=== PATIENT | female | born 1990 | race African-American/Black ===

== ENCOUNTER 2017-03-09 13:05 | Emergency (ER) | payer SELFPAY ==
[~2017-03-09] VITALS: Ht 167.6 cm; Wt 81.6 kg
[2017-03-09 13:15] VITALS: BP 138/61
[2017-03-09] MEDS ORDERED: GABA-586 PO (13:37)
--- NOTE | 2017-03-09 13:38 | PHYS DOC ---
Past Medical History Past Medical History: No Pertinent History Past Surgical History: Alcohol Use: None Drug Use: None Adult General Chief Complaint Chief Complaint: TOE PROBLEM HPI HPI Patient is a 27 year old female with no significant medical history who presents with sensation of numbness to the left great toe and second toe that began 3 weeks ago. Patient denies any injury. Denies any previous history of neuropathy. She is not on any medications. Review of Systems Review of Systems Constitutional: Denies fever or chills [] Eyes: Denies change in visual acuity, redness, or eye pain [] HENT: Denies nasal congestion or sore throat [] Respiratory: Denies cough or shortness of breath [] Cardiovascular: No additional information not addressed in HPI [] GI: Denies abdominal pain, nausea, vomiting, bloody stools or diarrhea [] : Denies dysuria or hematuria [] Musculoskeletal: Numbness sensation to the left great toe and left second toe Integument: Denies rash or skin lesions [] Neurologic: Denies headache, focal weakness or sensory changes [] Endocrine: Denies polyuria or polydipsia [] Allergies Allergies Allergies Coded Allergies Type Severity Reaction Last Updated Verified No Known Drug Allergies 10/17/15 No Physical Exam Physical Exam Constitutional: Well developed, well nourished, no acute distress, non-toxic appearance. [] HENT: Normocephalic, atraumatic, bilateral external ears normal, oropharynx moist, no oral exudates, nose normal. [] Eyes: PERRLA, EOMI, conjunctiva normal, no discharge. [] Neck: Normal range of motion, no tenderness, supple, no stridor. [] Cardiovascular:Heart rate regular rhythm, no murmur [] Lungs & Thorax: Bilateral breath sounds clear to auscultation [] Abdomen: Bowel sounds normal, soft, no tenderness, no masses, no pulsatile masses. [] Skin: Warm, dry, no erythema, no rash. [] Back: No tenderness, no CVA tenderness. [] Extremities: No tenderness, no cyanosis, no clubbing, ROM intact, no edema. [] Neurologic: Alert and oriented X 3, normal motor function, normal sensory function, no focal deficits noted. [] Psychologic: Affect normal, judgement normal, mood normal. [] Current Patient Data Vital Signs Vital Signs Date Time Temp Pulse Resp B/P (MAP) Pulse Ox O2 Delivery O2 Flow Rate FiO2 03/09/17 13:15 98.4 16 16 99 Room Air 98.4 EKG EKG [] Radiology/Procedures Radiology/Procedures [] Course & Med Decision Making Course & Med Decision Making Pertinent Labs and Imaging studies reviewed. (See chart for details) Patient is in the ED with numbness to the left great toe and left second toe. No known injury. No back pain, talked to patient about causes for paresthesia. Recommended she follows up with primary care doctor. Discharged on gabapentin. Encouraged to wear shoes to protect her toes all the time. Dragon Disclaimer Dragon Disclaimer This electronic medical record was generated, in whole or in part, using a voice recognition dictation system. Departure Departure Impression: Primary Impression: Paresthesia of foot Disposition: HOME, SELF-CARE Condition: STABLE Referrals: NO PCP (PCP) follow up with a doctor from the list provided in one week Patient Instructions: Paresthesia, [id number] Additional Instructions: You were seen for paresthesia of your toes. Please wear shoes all the time to protect the toes. Follow up with a doctor from the list provided in one week Scripts Gabapentin (GABAPENTIN) 300 Mg Capsule 300 MG PO TID, #30 CAP Prov: BRIT WHITTAKER APRN 03/09/17 Problem Qualifiers Primary Impression: Paresthesia of foot Laterality: left Qualified Codes: R20.2 - Paresthesia of skin BRIT WHITTAKER APRN Mar 09, 2017 13:38
== END 2017-03-09 13:41 | disposition home or self-care (01) ==
LOC: ER 13:05
DX: R20.2 Paresthesia of skin (principal); R20.0 Anesthesia of skin
CPT/HCPCS: 99283